=== PATIENT | female | born 1990 | race African-American/Black ===

== ENCOUNTER 2023-10-03 12:48 | Emergency (ER) | payer OTHER, SELFPAY ==
[2023-10-03 13:00] VITALS: BP 104/71; PULSE 80; RESP 14; TEMP 36.9; O2SAT 100; BMI 45.0
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
== END 2023-10-03 14:14 | disposition home or self-care (01) ==
LOC: ED 14:02
PROVIDERS: Emergency Provider Family Medicine
DX: M54.9 Dorsalgia, unspecified (principal); F41.9 Anxiety disorder, unspecified
CPT/HCPCS: 99284

== ENCOUNTER 2025-03-22 10:02 | Outpatient (CLI) | payer BC, SELFPAY ==
--- NOTE | 2025-03-22 10:15 | CRLHL7_ITS ---
For Patients: As a result of the Century Cures Act, medical imaging exams and procedure reports are released immediately into your electronic medical record. You may view this report before your referring provider. If you have questions, please contact your health care provider. INDICATION: Low back pain TECHNIQUE: Noncontrast sagittal and axial T1, T2, and sagittal STIR sequences are provided. No comparisons. FINDINGS: The overall stature, alignment and intrinsic marrow signal of the lumbar spine is within normal limits. Conus is normal. No suspicious disc bulges or protrusions. No suspicious central canal or foraminal narrowing. IMPRESSION: Unremarkable MRI of the lumbar spine. Dictated by Kota Araujo MD @ 03/22/2025 1:22:16 PM (Electronically Signed)
== END 2025-03-22 10:03 | disposition home or self-care (01) ==
LOC: MRI 10:03
PROVIDERS: PCP Family Medicine; Visit Provider Family Medicine
DX: M54.50 Low back pain, unspecified (principal); G57.03 Lesion of sciatic nerve, bilateral lower limbs
CPT/HCPCS: 72148